=== PATIENT | male | born 1955 | race African-American/Black ===

== ENCOUNTER → 2018-07-13 | Outpatient (CLI) | payer BC ==
[2018-07-13 09:19] LABS: HEMATOCRIT 46.4 % (37.9-51.0); HEMOGLOBIN 16.3 g/dL (13.5-17.0); MEAN CORPUSCULAR HEMOGLOBIN 32.3 pg (27.0-33.4); MEAN CORPUSCULAR HGB CONC 35.1 g/dL (32.0-36.0); MEAN CORPUSCULAR VOLUME 92 fl (80-97); PLATELET COUNT 169 10^3/uL (150-450); RED BLOOD COUNT 5.04 10^6/uL (4.35-5.55); RED CELL DISTRIBUTION WIDTH 12.2 % (11.5-14.0); WHITE BLOOD COUNT 9.3 10^3/uL (4.0-10.5)
[2018-07-13 09:28] LABS: INTERNATIONAL RATION (INR) 0.94
[2018-07-13 09:57] LABS: ALANINE AMINOTRANSFERASE 24 U/L (21-72); ALBUMIN 4.2 g/dL (3.5-5.0); ALKALINE PHOSPHATASE 153 U/L (38-126); ANION GAP 13 (5-19); ASPARTATE AMINO TRANSFERASE 47 U/L (17-59); BILIRUBIN,DIRECT 0.4 mg/dL (0.0-0.4); BILIRUBIN,TOTAL 0.7 mg/dL (0.2-1.3); BLOOD UREA NITROGEN 9 mg/dL (7-20); CALCIUM 9.2 mg/dL (8.4-10.2); CARBON DIOXIDE 24 mmol/L (22-30); CHLORIDE 105 mmol/L (98-107); GLUCOSE 151 mg/dL (75-110); POTASSIUM 4.1 mmol/L (3.6-5.0); SODIUM 142.1 mmol/L (137-145); TOTAL PROTEIN 7.5 g/dL (6.3-8.2)
--- NOTE | 2018-07-13 14:37 | RADIOLOGY REPORT (SQ) ---
EXAM DESCRIPTION: U/S ABDOMEN LIMITED W/O DOP COMPLETED DATE/TIME: 07/13/2018 8:34 am REASON FOR STUDY: CHRONIC VIRAL HEPATITIS (B18.2), ABN LFT (R94.5) B18.2 CHRONIC VIRAL HEPATITIS C R94.5 ABNORMAL RESULTS OF LIVER FUNCTION STUDIES COMPARISON: Abdominal ultrasound 11/20/2009 TECHNIQUE: Dynamic and static grayscale images acquired of the abdomen and recorded on PACS. Additio nal selected color Doppler and spectral images recorded. LIMITATIONS: None. FINDINGS: PANCREAS: Midline pancreas unremarkable LIVER: No masses. Echotexture normal. LIVER VASCULATURE: Normal directional flow of the main portal vein and hepatic veins. GALLBLADDER: No stones. Normal wall thickness. No pericholecystic fluid. ULTRASOUND-DETECTED ABAD'S SIGN: Negative. INTRAHEPATIC DUCTS AND COMMON DUCT: CBD and intrahepatic ducts normal caliber. No filling defects. INFERIOR VENA CAVA: Normal flow. AORTA: No aneurysm. RIGHT KIDNEY: Normal size. Normal echogenicity. No solid or suspicious masses. No hydronephrosis. No calcifications. PERITONEAL AND RIGHT PLEURAL SPACE: No ascites or effusions. OTHER: No other significant findings. IMPRESSION: NORMAL RIGHT UPPER QUADRANT ULTRASOUND. TECHNICAL DOCUMENTATION: JOB ID: [id number] [employer]- All Rights Reserved Reading location - IP/workstation name: [email or web address]
[2018-07-14 06:38] LABS: HEPATITIS B CORE AB TOT Negative (Negative); HEPATITS B SURFACE ANTIGEN Negative (Negative)
[2018-07-14 10:58] LABS: HEPATITIS A AB TOTAL Negative (Negative); HEPATITIS B SURFACE AB QUAL Non Reactive (.)
[2018-07-14 19:36] LABS: HEPATITIS C QUANTITATION 4120000 IU/mL (.)
[2018-07-15 07:40] LABS: HCV FIBROSURE ALT P5P 23 IU/L (0-55); HCV FIBROSURE GGT 443 IU/L (0-65); HCV FIBROSURE HAPTOGLOBIN 183 mg/dL (34-200); NECROINFLAM ACTIVITY GRADE A0-A1 (.); NECROINFLAMM ACTIVITY SCORE 0.19 (0.00-0.17)
== END ==
LOC: RAD 07:47
PROVIDERS: ATTEND Internal Medicine Gastroenterology
DX: B18.2 Chronic viral hepatitis C (principal); R94.5 Abnormal results of liver function studies
CPT/HCPCS: 36415; 76705; 80048; 80076; 81270; 82172; 82247; 82977; 83010; 83883; 84460; 85027; 85610; 86704; 86706; 86708; 86709; 87340; 87522

== ENCOUNTER → 2018-11-13 | Outpatient (CLI) | payer BC ==
[2018-11-13 10:59] LABS: HEMATOCRIT 43.4 % (37.9-51.0); HEMOGLOBIN 15.2 g/dL (13.5-17.0); MEAN CORPUSCULAR HEMOGLOBIN 32.2 pg (27.0-33.4); MEAN CORPUSCULAR HGB CONC 35.1 g/dL (32.0-36.0); MEAN CORPUSCULAR VOLUME 92 fl (80-97); PLATELET COUNT 166 10^3/uL (150-450); RED BLOOD COUNT 4.73 10^6/uL (4.35-5.55); RED CELL DISTRIBUTION WIDTH 12.2 % (11.5-14.0); WHITE BLOOD COUNT 7.8 10^3/uL (4.0-10.5)
[2018-11-13 11:27] LABS: ALANINE AMINOTRANSFERASE 12 U/L (21-72); ALBUMIN 4.3 g/dL (3.5-5.0); ALKALINE PHOSPHATASE 96 U/L (38-126); ANION GAP 11 (5-19); ASPARTATE AMINO TRANSFERASE 25 U/L (17-59); BILIRUBIN,DIRECT 0.5 mg/dL (0.0-0.4); BILIRUBIN,TOTAL 0.6 mg/dL (0.2-1.3); BLOOD UREA NITROGEN 8 mg/dL (7-20); CALCIUM 9.6 mg/dL (8.4-10.2); CARBON DIOXIDE 26 mmol/L (22-30); CHLORIDE 103 mmol/L (98-107); GLUCOSE 201 mg/dL (75-110); SODIUM 139.8 mmol/L (137-145); TOTAL PROTEIN 7.2 g/dL (6.3-8.2)
[2018-11-14 14:38] LABS: HEPATITIS C QUANTITATION HCV Not Detected IU/mL (.)
== END ==
LOC: LAB 10:15
PROVIDERS: ATTEND Physician Assistant Surgical
DX: B19.20 Unspecified viral hepatitis C without hepatic coma (principal)
CPT/HCPCS: 36415; 80048; 80076; 85027; 87522